=== PATIENT | male | born 1970 | race Caucasian/White ===

== ENCOUNTER 2025-06-02 10:26 | Outpatient (CLI) | payer OTHER ==
--- NOTE | 2025-06-02 11:44 | RADIOLOGY REPORT ---
CLINICAL INDICATION: ARTHRITIS; pain TECHNIQUE: 4 radiographic views of the left knee were obtained. Comparison: None FINDINGS/IMPRESSION: There is no evidence of acute fracture or dislocation. The visualized joint space is well maintained. The alignment is anatomical. There is no radiopaque foreign body.
== END 2025-06-02 23:59 | disposition home or self-care (01) ==
LOC: RAD 10:26
PROVIDERS: ATTEND Chiropractor
DX: M25.562 Pain in left knee (principal); M13.80 Other specified arthritis, unspecified site
CPT/HCPCS: 73562